=== PATIENT | female | born 1960 | race Caucasian/White ===

== ENCOUNTER 2017-02-25 15:08 | Emergency (ER) | payer BC ==
[~2017-02-25] VITALS: Ht 170.1 cm; Wt 90.7 kg
[~2017-02-25 15:08] MED LIST: TAMIFLU45 MG PO; ZOFRAN ODT4 MG SL
[2017-02-25] MEDS ORDERED: MEDROL DOSEPAK4 MG PO (15:42)
[2017-02-25] MEDS ORDERED: BACTRIM DS 8001 TA1 PO (15:42)
== END 2017-02-25 15:57 | disposition home or self-care (01) ==
LOC: ED 15:08
DX: T78.40XA Allergy, unspecified, initial encounter (principal); F17.200 Nicotine dependence, unspecified, uncomplicated; Z88.0 Allergy status to penicillin; Y92.9 Unspecified place or not applicable

== ENCOUNTER 2017-03-10 00:23 | Emergency (ER) | payer BC ==
[~2017-03-10] VITALS: Ht 170.1 cm; Wt 95.3 kg
[~2017-03-10 00:23] MED LIST changes: +BACTRIM DS 8001 TA1 PO; +MEDROL DOSEPAK4 MG PO
[2017-03-10] MEDS ORDERED: CLINDAMYCIN HC300 MG PO (01:07)
[2017-03-10] MEDS ORDERED: MEDROL DOSEPAK4 MG PO (01:07)
== END 2017-03-10 01:25 | disposition home or self-care (01) ==
LOC: ED 00:23
DX: R21 Rash and other nonspecific skin eruption (principal); F17.200 Nicotine dependence, unspecified, uncomplicated; Z88.0 Allergy status to penicillin

== ENCOUNTER 2018-02-03 16:00 | Emergency (ER) | payer OTHER ==
[~2018-02-03] VITALS: Ht 170.1 cm; Wt 966.2 kg
[~2018-02-03 16:00] MED LIST changes: +CLINDAMYCIN HC300 MG PO
[2018-02-03] MEDS ORDERED: MEDROL DOSEPAK4 MG PO (16:32)
== END 2018-02-03 16:23 | disposition home or self-care (01) ==
LOC: ED 16:00
DX: S00.86XA Insect bite (nonvenomous) of other part of head, initial encounter (principal); S80.869A Insect bite (nonvenomous), unspecified lower leg, initial encounter; S20.369A Insect bite (nonvenomous) of unspecified front wall of thorax, initial encounter; Z88.0 Allergy status to penicillin; W57.XXXA Bitten or stung by nonvenomous insect and other nonvenomous arthropods, initial encounter; Y93.84 Activity, sleeping; Y92.099 Unspecified place in other non-institutional residence as the place of occurrence of the external cause; Y99.8 Other external cause status

== ENCOUNTER 2019-09-10 14:47 | Emergency (ER) | payer MEDICAID ==
[~2019-09-10] VITALS: Ht 170.1 cm; Wt 117.9 kg
== END 2019-09-10 17:14 | disposition home or self-care (01) ==
LOC: ED 14:47
DX: J02.9 Acute pharyngitis, unspecified (principal); R09.89 Other specified symptoms and signs involving the circulatory and respiratory systems; F17.200 Nicotine dependence, unspecified, uncomplicated; Z88.0 Allergy status to penicillin

== ENCOUNTER 2020-02-11 12:37 | Emergency (ER) | payer BC ==
[2020-02-11] MEDS ORDERED: SEPTDS PO (12:59)
== END 2020-02-11 13:07 | disposition home or self-care (01) ==
LOC: ED 12:37
DX: S80.262A Insect bite (nonvenomous), left knee, initial encounter (principal); L08.9 Local infection of the skin and subcutaneous tissue, unspecified; Z88.0 Allergy status to penicillin; W57.XXXA Bitten or stung by nonvenomous insect and other nonvenomous arthropods, initial encounter; Y93.89 Activity, other specified; Y92.89 Other specified places as the place of occurrence of the external cause; Y99.8 Other external cause status

== ENCOUNTER 2020-02-13 14:41 | Inpatient (IN) | payer BC ==
[~2020-02-13] VITALS: Ht 170.1 cm; Wt 115.7 kg
[~2020-02-13 14:41] MED LIST changes: +SEPTDS PO
[2020-02-13 14:48] VITALS: BP 143/56
--- NOTE | 2020-02-13 15:32 | NUR ---
PT IS TO BE ADMITTED BUT STATES SHE NEEDS TO RETURN FRIENDS CAR. PT SIGNED AMA FORM BUT SAYS SHE WILL BE RIGHT BACK. YESENIA KEEN TALKED TO PT PRIOR TO PT LEAVING
--- NOTE | 2020-02-13 16:02 | NUR ---
PT RETURNED AND IS IN ROOM
[2020-02-13 16:32] LABS: HEMATOCRIT 45.2 % (37.0-47.0); MEAN CELL VOLUME 89.2 fl (81.0-99.0); MEAN CORPUSCULAR HGB CONC 34.7 g/dl (33.0-37.0); PLATELET COUNT AUTOMATED 242 10*3/uL (130-400); RED BLOOD COUNT 5.07 10*6/uL (4.10-5.10); RED CELL DISTRI WIDTH 14.2 % (0-14.5); WHITE BLOOD COUNT 8.4 10*3/uL (4.8-10.8)
[2020-02-13 16:47] LABS: ALBUMIN 3.5 gm/dl (3.1-4.5); ALKALINE PHOSPHATASE 88 U/L (45-117); BUN 8 mg/dl (7-24); CHLORIDE 110 mmol/L (98-107); CREATININE 0.82 mg/dL (0.55-1.02); POTASSIUM 3.8 mmol/L (3.5-5.1); SGOT/AST 20 IU/L (3-35); SGPT/ALT 37 U/L (12-78); SODIUM 138 mmol/L (136-145); TOTAL PROTEIN 7.4 gm/dL (6.4-8.2)
[2020-02-13 16:54] LABS: BASOPHILS 1 % (0-1); TOTAL CELLS COUNTED 100 #CELLS
[2020-02-13 16:55] LABS: PLATELET SUFFICIENCY NORMAL (NORMAL)
[2020-02-13 17:15] VITALS: BP 138/77
--- NOTE | 2020-02-13 17:50 | NUR ---
Time: 1749 A 59 year old FEMALE admitted to under services of MATTHEW RAVI DO, Pt. arrived via bed from ER. Chief complaint: CELLULITIS OF LEFT LOWER EXTREMITY. ASTRID GORDON
[2020-02-13 20:00] VITALS: BP 127/55
--- NOTE | 2020-02-13 20:00 | NUR ---
PATIENT ORIENTED, PLEASANT & COOPERATIVE. HAS NO C/O. NO DISTRESS ON RA. CALL LIGHT IN REACH.
[2020-02-14] VITALS: BP 129/63
[2020-02-14 06:18] LABS: BUN 10 mg/dl (7-24); CHLORIDE 112 mmol/L (98-107); CHOLESTEROL 165 mg/dL (<200); CREATININE 0.76 mg/dL (0.55-1.02); FREE T4 1.31 ng/dl (0.76-1.46); HDL CHOLESTEROL 48 mg/dl (40-60); LDL CHOLESTEROL 99 mg/dL (9-159); POTASSIUM 3.8 mmol/L (3.5-5.1); SODIUM 141 mmol/L (136-145); TRIGLYCERIDES 92 mg/dl (<150); VLDL CHOLESTEROL 18 mg/dL (6-40)
[2020-02-14 06:21] LABS: BASO % 0.5 % (0.0-1.0); EOS # 0.2 10*3/uL (0.0-0.4); EOS % 2.3 % (1.0-4.0); HEMATOCRIT 42.3 % (37.0-47.0); MEAN CELL VOLUME 90.2 fl (81.0-99.0); MEAN CORPUSCULAR HGB 30.7 pg (27.0-31.0); MEAN PLATELET VOLUME 12.9 fl (9.6-12.3); MONO # 1.1 10*3/uL (0.1-1.0); MONO % 15.4 % (3.0-9.0); NEUT # 3.9 10*3/uL (2.3-7.9); NEUT % 53.7 % (47.0-73.0); PLATELET COUNT AUTOMATED 205 10*3/uL (130-400); RED BLOOD COUNT 4.69 10*6/uL (4.10-5.10); RED CELL DISTRI WIDTH 14.2 % (0-14.5); WHITE BLOOD COUNT 7.3 10*3/uL (4.8-10.8)
[2020-02-14 06:24] LABS: THYROID STIM HORMONE (HS) 0.676 uIU/ml (0.358-4.75)
[2020-02-14 07:03] LABS: VITAMIN D, 25-HYDROXY 17.9 ng/mL (30-100)
[2020-02-14 08:00] VITALS: BP 107/69
--- NOTE | 2020-02-14 08:11 | NUR ---
24HR CHART CHECK COMPLETE
--- NOTE | 2020-02-14 08:30 | NUR ---
Tank Builder Supervisor in to talk to patient. Patient states lives at home with her girlfriend, Leanne. There are 2 outside steps. Physician: Dr. Flynn Escobar Pharmacy: [facility] Home health services: none Patient's level of ADLs: INDEPENDENT Patient has working utilities: yes DME: none Follow-up physician's appointment after d/c: will be made by the hospitalist nurse director upon discharge Does patient want to access PORTAL?: no Discharge plan discussed with patient. She lives at home with her girlfriend. She is independent in her ADLs and ambulation. Discussed home health care services and she denies any home needs at this time stating "I am just here for an insect bite." When medically stable she will be discharged to home. She states Leanne will provide transportation on discharge. MIKAELA CARRILLO
[2020-02-14 12:00] VITALS: BP 110/68
--- NOTE | 2020-02-14 12:38 | NUR ---
IV START: NEW IV STARTED IN LEFT HAND. 20G 1ST ATTEMPT. IV TO RIGHT AC REMOVED INTACT WITHOUT COMPLICATIONS. PT WAS COMPLAINING OF BURNING AT THE SITE WITH FLUSH AND INFUSION. CONTINUE TO MONITOR THE PT.
--- NOTE | 2020-02-14 14:10 | NUR ---
Patient on cell phone lying comfortably on right side upon entry. Patient put phone away and verbalization showed she is alert and oriented X4. Patient has no complaints of pain, numbness, burning, or tingling in lower extremities. Patient states she is feeling fine with no complaints. Assessment showed erythema reduced from innermost pen markings on LLE. Scant yellow drainage visualized from opening at medial popliteal fossa of LLE. Breath sounds auscultated. All WNL other than faint crackle heard in RLL upon inspiration. Crackle dissapeared with continued deep breathing during assessment. Heart Rate 66/min regular. Bilateral pedal pusles 2+. No pedal edema. Trace to +1 edema L medial and posterior knee. Patient reported no problems with BMs since admission. Patient educated on deep breathing and coughing every 2 hours while awake while being sedentary. Continuing hydration to maintain BMs. And ingestion of foods to promote good gut bacteria due to continued antibiotic use. Patient verbalized understanding of above education. Reva CARMEN OVCT /Nahomy CALIXTO / NATTY ANDERSON
[2020-02-14 16:00] VITALS: BP 111/76
--- NOTE | 2020-02-14 16:28 | NUR ---
PATIENT RESTING COMFORTABLY IN BED. NO DISTRESS NOTED. RESPIRATIONS EASY, REGULAR ON RA. DENIES ANY SOB. DENIES ANY PAIN/DISCOMFORT AT THIS TIME. CELLULITIS/REDNESS IMPROVING TO LLE. PT DENIES ANY DRAINAGE AT THIS TIME. WILL CONTINUE TO MONITOR. CALL LIGHT WITHIN REACH. SEE SHIFT ASSESSMENT.
[2020-02-14 20:00] VITALS: BP 108/53
--- NOTE | 2020-02-14 20:00 | NUR ---
PATIENT RESTING; EASY REG RESPIRATIONS. NOT AWAKENED AT THIS TIME. WILL CHECK BACK
--- NOTE | 2020-02-14 20:50 | NUR ---
PATIENT RESTING ON RT SIDE, FLAGYL ADMINISTERED PER ORDER TO LT HAND, SITE ASYMPTOMATIC. POSTERIOR L KNEE WOUND APPEARS LESS RED THAN LAST NIGHT, NO DRAINAGE TO SITE.
[2020-02-15] VITALS: BP 128/53
--- NOTE | 2020-02-15 06:41 | NUR ---
SMALL AMT OF DRAINAGE TO WOUND BED; WOUND CULTURE OBTAINED AT THIS TIME
[2020-02-15 08:00] VITALS: BP 122/64
--- NOTE | 2020-02-15 08:00 | NUR ---
Patient resting quietly with no c/o discomfort. Respirations easy and regular. Vital signs stable. No overt distress. QUIANA CRANE
[2020-02-15] MEDS ORDERED: DOXYCYCLINE100 M3 PO (10:37)
--- NOTE | 2020-02-15 11:00 | NUR ---
DISCHARGE PHOTO OBTAINED PER POLICY.
--- NOTE | 2020-02-15 11:01 | NUR ---
Discharge instructions reviewed with patient. Patient receptive and verbalizes understanding. Follow-up care arranged. Written instructions given to patient. QUIANA CRANE
== END 2020-02-15 10:55 | disposition home or self-care (01) | DRG 603 ==
LOC: ED 14:41 → 4E 16:12 → EDHOLD 16:12 → 4E 16:28
PROVIDERS: Internal Medicine; Physician Assistant; ADMIT Internal Medicine
DX: L03.116 Cellulitis of left lower limb (principal); Z68.41 Body mass index [BMI] 40.0-44.9, adult; E66.01 Morbid (severe) obesity due to excess calories; L02.416 Cutaneous abscess of left lower limb; E55.9 Vitamin D deficiency, unspecified; F17.210 Nicotine dependence, cigarettes, uncomplicated; E53.8 Deficiency of other specified B group vitamins; Z71.6 Tobacco abuse counseling; Z88.0 Allergy status to penicillin

== ENCOUNTER 2020-11-10 20:57 | Emergency (ER) | payer SELFPAY ==
[~2020-11-10] VITALS: Ht 170.1 cm; Wt 71.7 kg
[~2020-11-10 20:57] MED LIST changes: +DOXYCYCLINE100 M3 PO
== END 2020-11-10 22:48 | disposition home or self-care (01) ==
LOC: ED 20:57
DX: H57.89 Other specified disorders of eye and adnexa (principal); F17.210 Nicotine dependence, cigarettes, uncomplicated; H57.12 Ocular pain, left eye; Z88.0 Allergy status to penicillin; Z79.2 Long term (current) use of antibiotics; Z98.51 Tubal ligation status